=== PATIENT | male | born 1965 | race Two or more races ===

== ENCOUNTER 2022-12-07 08:33 | Day surgery (SDC) | payer MEDICAID ==
[2022-12-01 12:52] LABS: Basophils # (auto) 0 10 ^3/uL (0-0.2); Basophils % (auto) 0.2 % (0.0-2.0); Eosinophils # (auto) 0.1 10 ^3/uL (0-0.8); Eosinophils % (auto) 2.4 % (0.0-7.0); Hematocrit 47.9 % (41.0-53.0); Hemoglobin 16.6 g/dL (13.5-17.5); Lymphocytes # (auto) 1.9 10 ^3/uL (0.4-5.4); Lymphocytes % (auto) 33.6 % (10.0-50.0); Mean Corpuscular Hemoglobin 32.3 pg (28.0-32.0); Mean Corpuscular Hgb Conc. 34.8 g/dL (32.0-36.0); Monocytes # (auto) 0.5 10 ^3/uL (0-1.3); Monocytes % (auto) 8.6 % (0.0-12.0); Neutrophils # (auto) 3.2 10 ^3/uL (1.6-8.6); Neutrophils % (auto) 55.2 % (37.0-80.0); Nucleated Red Blood Cells % 0.2 %; Red Blood Cells 5.15 10^6/uL (4.5-5.90); Red Cell Distribution Width 12.7 % (11.8-14.3); White Blood Cell 5.8 10^3/uL (4.4-10.8)
[2022-12-01 13:11] LABS: Calcium 8.2 mg/dL (8.5-10.1); Potassium 3.9 mmol/L (3.5-5.1); Urine Bacteria FEW /hpf (None Seen); Urine Blood Negative /uL (Negative); Urine Clarity Clear (Clear); Urine Color Yellow (Yellow); Urine Mucus FEW (None Seen); Urine Protein, UAD TRACE (Negative); Urine Specific Gravity 1.029 (1.001-1.035); Urine Urobilinogen Normal (Negative); Urine WBC 1 /hpf (0 - 3); Urine pH 5.5 (5.0-8.0)
[2022-12-01 13:17] LABS: Albumin 3.9 g/dL (3.4-5.0); BUN/Creatinine Ratio 15.6 (10.0-20.0); Bilirubin, Total 0.6 mg/dL (0.2-1.0); Total Protein 7.3 g/dL (6.4-8.2)
[2022-12-01 14:00] LABS: INR 1.21 (0.9-1.15); Partial Thromboplastin Time 32.1 SEC (24.5-34.5); Prothrombin Time 12.5 sec (9.3-11.8)
[~2022-12-07] VITALS: Ht 170.2 cm; Wt 87.1 kg
[2022-12-07] MEDS ORDERED: ceFAZolin 1GM/50ML 100 ML IV ONE (10:43)
[2022-12-07] MEDS ORDERED: LIDOCAINE W/ EPINEPHRINE 1% 20ML VIAL ONE (11:08)
[2022-12-07] MEDS ORDERED: BACITRACIN TOP OINT 1 UD PKG TOP ONE (11:08)
[2022-12-07] MEDS ORDERED: MIDAZOLAM HCL 2MG/2ML 2ml VIAL (1mg/ml) ONE (11:17)
[2022-12-07] MEDS ORDERED: fentaNYL CITRATE 100 MCG/2 ML VL ONE (11:17)
[2022-12-07] MEDS ORDERED: ONDANSETRON HCL 4 MG/2 ML VIAL IV PRN (12:15)
[2022-12-07] MEDS ORDERED: HYDROmorphone HCL 2 MG/ML VL/or syr IV PRN (12:15)
[2022-12-07 12:20] VITALS: TEMP 97.4; O2SAT 100
[2022-12-07] MEDS ORDERED: NEOSTIGMINE 1 MG/ML INJ (10mg/10ML VIAL) ONE (12:20)
[2022-12-07] MEDS ORDERED: GLYCOPYRROLATE 0.2 MG/ML 1ML VIAL ONE (12:20)
[2022-12-07] MEDS ORDERED: PROPOFOL 10 MG/ML 20 ML IV ONE (12:21)
[2022-12-07] MEDS: HYDROmorphone HCL 2 MG/ML VL/or syr IV PRN ×3 (12:53→13:25)
[2022-12-07 13:40] VITALS: BP 124/80; PULSE 60; RESP 14; O2SAT 94
== END 2022-12-07 13:45 | disposition home or self-care (01) ==
LOC: SUR 08:33
PROVIDERS: ATTEND Urology
DX: N43.3 Hydrocele, unspecified (principal)
CPT/HCPCS: 36415; 55040; 80053; 81001; 85025; 85610; 85730; 87086; J0690; J1170; J2250; J2704; J3010